=== PATIENT | male | born 1945 | race Caucasian/White ===

== ENCOUNTER 2016-11-03 07:00 | Outpatient (CLI) | payer MEDICARE, OTHER ==
[2016-04-08 21:59] VITALS: BP 148/72
--- NOTE | 2016-11-03 13:42 | Diagnostic Imaging Report ---
[facility] [address] [facility] [address] Report Submission Date: Nov 03, 2016 12:03:35 PM INSULATION CUPOLA CHARGER Patient Study Name: ARRON MCCULLOUGH Date: Nov 03, 2016 8:30:44 AM INSULATION CUPOLA CHARGER Modality Type: CT\SR Gender: M Description: CT ABD & PELVIS W/ CON : 47 Institution: [facility] Physician: KENZIE NGUYỄN CT of the abdomen and pelvis with contrast Clinical history: Intermittent left lower quadrant abdominal pain for 3-4 months. Technique: CT of the abdomen and pelvis is performed with oral and intravenous administration of contrast. Sagittal and coronal reconstructions are performed by the technologist. Findings: There is a 4 mm noncalcified nodule right lower lobe consistent with noncalcified granuloma. Lung bases are otherwise clear. The liver is hypodense consistent with hepatic steatosis. There is no focal abnormality in the liver or spleen. The gallbladder is normally distended. There is no pancreatic or adrenal abnormality. The kidneys demonstrate symmetric enhancement. Vascular calcification is present in the abdominal aorta without evidence of aneurysm. There is no retroperitoneal mass or significant adenopathy. Bladder is unremarkable. There is no free fluid in the pelvis or abdomen. Spondylitic changes are present in the thoracolumbar spine. There is a small left inguinal hernia containing only fat. The appendix is visualized and is within normal limits. Impression: 1. Negative appendix. 2. Hepatic steatosis. 3. Left inguinal hernia. 4. Vascular calcification. Electronically signed on Nov 03, 2016 12:03:35 PM INSULATION CUPOLA CHARGER by: José Miguel WHITLOCK
== END 2016-11-03 07:02 ==
LOC: RAD 07:00
PROVIDERS: ATTEND Family Medicine
DX: R10.32 Left lower quadrant pain (principal)
CPT/HCPCS: 74177; Q9966; A9698

== ENCOUNTER 2016-11-12 12:55 | Outpatient (CLI) | payer MEDICARE, OTHER ==
[2016-04-08 21:59] VITALS: BP 148/72
== END 2016-11-12 12:56 ==
LOC: OUT 12:55
PROVIDERS: ATTEND Colon & Rectal Surgery
DX: K40.90 Unilateral inguinal hernia, without obstruction or gangrene, not specified as recurrent (principal); I10 Essential (primary) hypertension; E78.5 Hyperlipidemia, unspecified
CPT/HCPCS: 99213; G0463

== ENCOUNTER 2017-01-25 21:11 | Emergency (ER) | payer MEDICARE, OTHER ==
[2017-01-25] MEDS: KETOROLAC TROMETHAMINE 60 MG/2 ML VIAL IM ONE (21:55)
--- NOTE | 2017-01-25 22:08 | ED Physician Documentation ---
Lower Extremity Injury - HISTORIAN Historian: patient - HPI Stated Complaint: left foot pain Chief Complaint: Lower Extremity Injury Onset: other (yesterday) Where: home Severity: moderate Context: direct blow (kicked a cow) Associated Symptoms:: unable to bear weight Modifying Factors:: pain on movement - ROS CONST: no problems CVS/RESP: none GI/: denies: problems urinating, nausea, vomiting, other MS/SKIN/LYMPH: none NEURO: denies: headache, head injury, anxiety, depression - PAST HX Past History: other (gout, ) Allergies/Adverse Reactions: Allergies Allergy/AdvReac Type Severity Reaction Status Date / Time No Known Allergies Allergy Verified 04/08/16 20:52 - SOCIAL HX Smoking History: non-smoker - FAMILY HX Family History: none - VITAL SIGNS Vital Signs: Vital Signs Temp Pulse Resp BP Pulse Ox 98.9 F 87 18 140/73 96 01/25/17 21:15 01/25/17 21:15 01/25/17 21:15 01/25/17 21:15 01/25/17 21:15 - REVIEWED ASSESSMENTS Nursing Assessment Reviewed: Yes Vitals Reviewed: Yes Progress - Progress Progress: Right foot with significant edema and erythema. Patient rates pain 10/10. XRay reviewed, likely chip fracture in distal 1st metatarsal. Will place patient in walking boot and have him follow up with Dr Roger for re-check of images in 48 hours. ED Results Lab/Radiology - Lab Results Lab Results: Lab Results 01/25/17 22:18 Uric Acid 3.8 mg/dL mg/dL (2.0-7.8) - Radiology Radiology Impressions: HISTORY: 71-year-old male with left foot pain after injury, pain is primarily involving the great toe. COMPARISON: None available. TECHNIQUE: 3 views of the left foot were performed. FINDINGS: No acute fracture or dislocation are identified about the left foot. There is an old healed fracture of the left fifth toe proximal phalanx. 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 There are severe degenerative changes of the first MTP joint. There is a 12 mm plantar calcaneal bone spur. There is an os trigonum. IMPRESSION: 1. No acute fracture of the left foot. 2. Old healed fracture of the left fifth toe proximal phalanx. 3. 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 Electronically signed on Jan 25, 2017 9:47:24 PM CDT by: Sanjay Hurtado - Orders Orders: ED Orders Category Date Time Status Walking Boot 1T Care 01/25/17 22:15 Active FOOT 3 VIEWS OR MORE [RAD] Stat Exams 01/25/17 Taken URIC ACID Stat Lab 01/25/17 22:18 Completed Ketorolac Tromethamine [Toradol] Med 01/25/17 21:43 Discontinued 60 mg IM NOW ONE Lower Extremities Injury Phy - Physical Exam General Appearance: moderate distress Hips: bilateral hip: non-tender, normal inspection, normal range of motion, no evidence of injury Legs: bilateral: non-tender, normal inspection, normal range of motion, no evidence of injury Knees: bilateral: non-tender, normal inspection, normal range of motion, no evidence of injury Ankle: bilateral: non-tender, normal inspection, normal range of motion, no evidence of injury Foot: right foot: non-tender, normal inspection, normal range of motion, no evidence of injury, left foot: bone tenderness, deformity, ecchymosis, limited range of motion, pain (worse over 1st metatarsal MTP joint), soft tissue tenderness, swelling Gait: limited by pain Neuro/Vascular/Tendon: no vascular compromise, motor nml, sensation nml, ROM nml Resp/CVS: chest non-tender, breath sounds nml, heart sounds nml, no resp. distress, lungs clear, reg. rate & rhythm Discharge Clincal Impression: Metatarsal bone fracture Qualifiers: Encounter type: initial encounter Metatarsal bone: first Fracture type: closed Fracture alignment: nondisplaced Laterality: left Qualified Code(s): S92.315A - Nondisplaced fracture of first metatarsal bone, left foot, initial encounter for closed fracture Referrals: Eriberto Roger MD [Primary Care Provider] - 2 Days Additional Instructions: Rest ice elevation Wear your Walking boot until you are seen by Dr Roger. Make a f/u appointment for re-evaluation in 2 days. Condition: Stable Disposition: 01 HOME, SELF-CARE Decision to Admit: NO Decision Time: 22:14
[2017-01-25] MEDS: HYDROcodone /APAP 5/325 1 EACH TABLET PO ONE (23:04)
[2017-01-25 23:06] VITALS: BP 138/72
--- NOTE | 2017-01-26 05:50 | Diagnostic Imaging Report ---
Report Submission Date: Jan 25, 2017 9:47:24 PM CDT Patient ~ Study Name: ARRON MCCULLOUGH ~ Date: Jan 25, 2017 9:29:22 PM CDT ~ Modality Type: CR Gender: M ~ Description: LOWER EXTREMITY : 47 ~ Institution: [facility] Physician: SHIELA GONZALEZ) Lorena SEN ~ ~ ~ ~ HISTORY: ~71-year-old male with left foot pain after injury, pain is primarily involving the great toe. COMPARISON: None available. TECHNIQUE: 3 views of the left foot were performed. FINDINGS: No acute fracture or dislocation are identified about the left foot. There is an old healed fracture of the left fifth toe proximal phalanx. 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 ~ There are severe degenerative changes of the first MTP joint. ~There is a 12 mm plantar calcaneal bone spur. ~There is an os trigonum. IMPRESSION: 1. ~No acute fracture of the left foot. 2. ~Old healed fracture of the left fifth toe proximal phalanx. 3. 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 ~ Electronically signed on Jan 25, 2017 9:47:24 PM CDT by: Sanjay WHITLOCK
== END 2017-01-25 23:04 | disposition home or self-care (01) ==
LOC: ED 21:11
DX: S92.315A Nondisplaced fracture of first metatarsal bone, left foot, initial encounter for closed fracture (principal); X58.XXXA Exposure to other specified factors, initial encounter; Y93.9 Activity, unspecified; Y99.9 Unspecified external cause status
CPT/HCPCS: 73630; 84550; A9270; J1885; 96372; 99283; L4360

== ENCOUNTER 2017-11-26 18:47 | Emergency (ER) | payer MEDICARE, OTHER ==
[2017-11-26] MEDS: 0.9 % SODIUM CHLORIDE 1,000 ML IV ONE (19:18)
[2017-11-26] MEDS: KETOROLAC TROMETHAMINE 30 MG/1ML VIAL IVP ONE (19:18)
--- NOTE | 2017-11-26 19:52 | ED Physician Documentation ---
Upper Respiratory Symptoms - HISTORIAN Historian: patient - HPI Stated Complaint: flu like symptoms Chief Complaint: Cough/ Upper Respiratory Onset: days ago (2) Associated Symptoms: fever, chills, runny nose, productive cough Further Comments: yes (72 year old male patient presents with flu like symptoms since Wednesday morning. Patient reports fever & chills, cough, decreased po intake.) - ROS CONST/EYES: eye redness. denies: weakness, eye itching CVS/RESP: none LYMPH: denies: leg swelling, rash, swollen glands, ankle swelling, other GI/: none NEURO/PSYCH: denies: fainting, dizziness, confusion, anxiety, depression, other MS/SKIN: denies: joint pain, muscle aches, rash, other - PAST HX Lung Disease: none PE Risk Factors: hypertension, other (HLD) Allergies/Adverse Reactions: Allergies Allergy/AdvReac Type Severity Reaction Status Date / Time No Known Allergies Allergy Verified 11/26/17 18:57 - SOCIAL HX Smoking History: cigarettes Alcohol Use: heavy (daily) - FAMILY HX Family History: denies: none - VITAL SIGNS Vital Signs: Vital Signs Temp Pulse Resp BP Pulse Ox 100.5 F H 87 16 167/80 95 11/26/17 18:50 11/26/17 18:50 11/26/17 18:50 11/26/17 18:50 11/26/17 18:50 - REVIEWED ASSESSMENTS Nursing Assessment Reviewed: Yes Vitals Reviewed: Yes Progress - Progress Progress: Patient reports drinking 1 glass of water and 1 glass of juice today, took tylenol at 0500. Will medicate with toradol and give 1L of NS due to co-morbidities of ETOH abuse. Rapid influenza negative. ED Results Lab/Radiology - Orders Orders: ED Orders Category Date Time Status Place IV Lock 1T Care 11/26/17 19:02 Active INFLUENZA A&B Stat Lab 11/26/17 19:08 Ordered 0.9 % Sodium Chloride [Normal Saline] 1,000 ml Med 11/26/17 19:02 Discontinued IV NOW Ketorolac Tromethamine [Toradol] Med 11/26/17 19:02 Discontinued 30 mg IVP NOW ONE Upper Respiratory Symptoms - EXAM General Appearance: other (ill appearing patient) EENT: eyes nml inspection, nml ENT inspection, lids & conjunct. nml, PERRL, ear nml, nose nml, pharynx nml, airway nml Respiratory: no resp. distress, breath sounds nml, no pain on inspiration, speaks full sentences, no pleuritic chest pain Abdomen: non-tender, no organomegaly, nml bowel sounds, no distention CVS: reg rate & rhythm, heart sounds normal, equal pulses, no murmur, no gallop , PMI nml, no JVD, no friction rub, 24 Skin: color nml, no rash, warm,dry Extremities: non-tender, normal range of motion, no evidence of injury, no edema , J, [employer] Neuro/Psych: oriented x3, neuro intact, mood/affect nml, CN's nml as tested Discharge Clincal Impression: Viral syndrome Referrals: Eriberto Roger MD [Primary Care Provider] - 2 Days Additional Instructions: A virus cannot be treated with antibiotics. Rest Have plenty of sleep and rest. Stay away from others while you have a cold or flu. Take simple painkillers Such as Tylenol or ibuprofen, to help relieve headaches, muscles aches and pains and fever. Keep hydrated (drink plenty of fluids) This will help keep your throat moist and replace fluid lost due to a fever and sweating. Plenty of water is best. Avoid caffeine and alcohol as they will make you more dehydrated. Eat soft food If you have a sore throat soft foods are easier to swallow. Foods such as chicken soup may help a sore throat and reduce mucous. tune up mechanic an over the counter decongestant such as pseudoped, dayquil and Nyquil at your pharmacy. You may want to try Vicks rub on your chest and/or feet. ( Caution: Dayquil and Nyquil contain 325mg of Tylenol/acetaminophen per tablespoon) Cough drops as needed for cough and sore throat. Increase your fluid intake juices, hot tea, non-caffeinated beverages Vitamin C may be helpful in decreasing the length of your cold. Use a humidifier in the room where you sleep. You can also sit in a steam filled bathroom 1-2 times a day. Tylenol every 4 hours 650mg -1000mg (do not exceed 4000mg in 24 hours) as needed for fever, pain and body aches. Alternate with Ibuprofen Ibuprofen 600-800mg every 6 hours as needed for fever, pain and body aches. See your primary care doctor if your symptoms become worse or do not improve in the next 3-4 days. Condition: Stable Disposition: 01 HOME, SELF-CARE Decision to Admit: NO Decision Time: 19:53
[2017-11-26 20:16] VITALS: BP 143/71
== END 2017-11-26 20:05 | disposition home or self-care (01) ==
LOC: ED 18:47
DX: B34.9 Viral infection, unspecified (principal); F10.10 Alcohol abuse, uncomplicated; F17.210 Nicotine dependence, cigarettes, uncomplicated
CPT/HCPCS: 87400; 96365; 96375; 99283; J1885; J7030; S1016

== ENCOUNTER 2017-12-31 11:28 | Outpatient (CLI) | payer MEDICARE, OTHER ==
[2017-12-31 11:55] LABS: BASOPHILS % 0.6 (0.0-1.5); MEAN CORPUSCULAR VOLUME 94.8 fl (80.0-100.0); MONOCYTES % 4.3 % (0.0-11.0); NEUTROPHILS # 4.3 # k/uL (1.4-7.7)
[2017-12-31 13:08] LABS: eGFR (African) > 60; eGFR (Non-African) > 60
== END 2017-12-31 11:30 ==
LOC: LAB 11:28
PROVIDERS: ATTEND Family Medicine
DX: I10 Essential (primary) hypertension (principal); E78.5 Hyperlipidemia, unspecified
CPT/HCPCS: 36415; 80053; 80061; 85025

== ENCOUNTER 2018-11-23 10:04 | Outpatient (CLI) | payer MEDICARE, OTHER ==
[2018-11-23 11:13] LABS: eGFR (Non-African) > 60
== END 2018-11-23 10:10 ==
LOC: LAB 10:04
PROVIDERS: ATTEND Family Medicine
DX: M10.9 Gout, unspecified (principal); I10 Essential (primary) hypertension; R73.9 Hyperglycemia, unspecified; Z12.5 Encounter for screening for malignant neoplasm of prostate
CPT/HCPCS: 36415; 80053; 80061; 83036; 84153; 84550

== ENCOUNTER 2019-06-05 09:05 | Emergency (ER) | payer MEDICARE, OTHER ==
--- NOTE | 2019-06-05 09:18 | ED Physician Documentation ---
Ear Complaints - HISTORIAN Historian: patient - HPI Stated Complaint: right ear feels full of wax Chief Complaint: Ear Complaints Timing: still present Location of Pain: L ear Severity: moderate Associated Symptoms: aching, hearing loss. denies: fever, chills, sharp pain, dull pain Further Comments: yes (He states he has had issues with ear wax in the past and he feels his left ear is full of wax. He denies any pain or illness. He has no fever.) - ROS CONST: no problems - PAST HX Past History: none Allergies/Adverse Reactions: Allergies Allergy/AdvReac Type Severity Reaction Status Date / Time No Known Allergies Allergy Verified 11/26/17 18:57 - SOCIAL HX Smoking History: non-smoker Alcohol Use: none Drug Use: none - FAMILY HX Family History: No - VITAL SIGNS Vital Signs: Vital Signs Temp Pulse Resp BP Pulse Ox 143/71 11/26/17 20:05 - REVIEWED ASSESSMENTS Nursing Assessment Reviewed: Yes Vitals Reviewed: Yes Ear Complaint Physical Exam - EXAM General Appearance: no acute distress, alert Ear: auricle nml, cnc specialist.canal nml, right, left, cerumen, bulging of TM (right ear with redness and bulging TM ). No: pain w movement of auricl Mouth/Throat: lips nml, pharynx nml Nose: nml inspection Head/Neck: atraumatic Eye: eyes nml inspection Resp/CVS: chest non-tender, breath sounds nml, heart sounds nml, no resp. distress, lungs clear, reg. rate & rhythm Abdomen: non-tender Skin: nml color Neuro/Psych: oriented x3 Discharge Clincal Impression: Otitis media, right Qualifiers: Otitis media type: other nonsuppurative Chronicity: acute Recurrence: non- recurrent Qualified Code(s): H65.191 - Other acute nonsuppurative otitis media, right ear Cerumen impaction Qualifiers: Laterality: bilateral Qualified Code(s): H61.23 - Impacted cerumen, bilateral Referrals: Eriberto Roger MD [Primary Care Provider] - 2 Days Comments: 1 . Debrox drops 5-10 drops in each ear twice daily x 4days 2. Amoxicillin 875 mg take 1 by mouth twice daily x 10 days 3. Increase fluids 4. Follow up with PCP 2-4 days if any continued concerns 5. Return to ER for any increased concerns Condition: Stable Disposition: 01 HOME, SELF-CARE Decision to Admit: NO Date of Decison to Admit: 06/05/19 Decision Time: 09:35
[2019-06-05 09:42] VITALS: BP 155/82
== END 2019-06-05 09:41 | disposition home or self-care (01) ==
LOC: ED 09:05
DX: H65.191 Other acute nonsuppurative otitis media, right ear (principal); H61.23 Impacted cerumen, bilateral
CPT/HCPCS: 99281

== ENCOUNTER 2019-06-09 07:25 | Emergency (ER) | payer MEDICARE, OTHER ==
[2019-06-09 07:40] VITALS: BP 153/85
[2019-06-09] MEDS ORDERED: CARBAMIDE PEROXIDE 6.5% OTIC SUSP 15 ML BOTTLE ONE (07:42)
--- NOTE | 2019-06-09 08:33 | ED Physician Documentation ---
General Adult - HISTORIAN Historian: patient - HPI Stated Complaint: ear fullness Chief Complaint: General Adult Onset: days ago Timing: still present Severity: moderate Further Comments: yes (Pt is a 74 yo male with recent ear infection who has c/o ear fullness b/l and decreased hearing.) - ROS CONST: no problems EYES/ENT: other (decreased hearing, ear fullness b/l) GI/: none MS/SKIN/LYMPH: none - PAST HX Past History: other (HLD) Allergies/Adverse Reactions: Allergies Allergy/AdvReac Type Severity Reaction Status Date / Time No Known Allergies Allergy Verified 06/09/19 07:32 - SOCIAL HX Smoking History: non-smoker - FAMILY HX Family History: No - VITAL SIGNS Vital Signs: Vital Signs Temp Pulse Resp BP Pulse Ox 98.1 F 80 19 153/85 94 06/09/19 07:33 06/09/19 07:33 06/09/19 07:33 06/09/19 07:33 06/09/19 07:33 - REVIEWED ASSESSMENTS Nursing Assessment Reviewed: Yes Vitals Reviewed: Yes Progress - Progress Progress: Cerumen impaction resolved after tx with Debrox and irrigation b/l Sx resolved ED Results Lab/Radiology - Orders Orders: ED Orders Category Date Time Status Carbamide Peroxide 6.5% Otic [Debrox] Med 06/09/19 07:42 Discontinued 225 drop .ROUTE .STK-MED ONE General Adult Physical Exam - PHYSICAL EXAM GENERAL APPEARANCE: no distress EENT: pharynx normal, other (b/l cerumen inpaction) NECK: normal inspection, supple RESPIRATORY: no resp distress, chest non-tender, breath sounds normal CVS: reg rate & rhythm, heart sounds normal BACK: normal inspection SKIN: warm/dry, normal color EXTREMITIES: non-tender, normal range of motion, no evidence of injury NEURO: oriented X3, motor nml, sensation nml Discharge Clincal Impression: Cerumen impaction Qualifiers: Laterality: bilateral Qualified Code(s): H61.23 - Impacted cerumen, bilateral Referrals: Eriberto Roger MD [Primary Care Provider] - Condition: Good Disposition: 01 HOME, SELF-CARE Decision to Admit: NO Decision Time: 08:33
[2019-06-09] MEDS ORDERED: CARBAMIDE PEROXIDE 6.5% OTIC SUSP 15 ML BOTTLE AU ONE (08:48)
== END 2019-06-09 08:51 | disposition home or self-care (01) ==
LOC: ED 07:25
DX: H61.23 Impacted cerumen, bilateral (principal)
CPT/HCPCS: 99282

== ENCOUNTER 2019-09-06 10:35 | Outpatient (CLI) | payer MEDICARE, OTHER ==
--- NOTE | 2019-09-06 11:13 | Diagnostic Imaging Report ---
PATIENT MR#: [id number] PATIENT PATIENT NAME: ARRON MCCULLOUGH DATE OF : 1945 REFERRING PHYSICIAN: Eriberto Roger EXAM DATE: 09/06/2019 ACCESSION NUMBER: [id number] EXAM DESCRIPTION: KNEES BILAT STANDING AP Exam: Weight-bearing AP knees. History: Pain. No previous studies are available for comparison. Medial compartment narrowing in the right knee is noted. Chondrocalcinosis in the medial compartment of both knees are noted. No acute fracture is identified. Impression: Arthritic changes more marked on the right than on the left. Read by: Dr. Naeem Tom Transcribed by: Transcribed Date: Electronically signed by: Dr. Naeem Tom Date signed: 09/06/2019 11:12:26 AM
--- NOTE | 2019-09-06 11:14 | Diagnostic Imaging Report ---
PATIENT MR#: [id number] PATIENT PATIENT NAME: ARRON MCCULLOUGH DATE OF : 1945 REFERRING PHYSICIAN: Eriberto Roger EXAM DATE: 09/06/2019 ACCESSION NUMBER: [id number] EXAM DESCRIPTION: KNEE 1 OR 2 VIEWS Exam: Right knee. History: Pain. AP, lateral and oblique view of the right knee are submitted. Medial compartment narrowing is noted. Spurring at the femoropatellar articulation is also noted. N o acute fracture is seen. No other soft tissue abnormalities are seen. Impression: Degenerative changes. Read by: Dr. Naeem Tom Transcribed by: Transcribed Date: Electronically signed by: Dr. Naeem Tom Date signed: 09/06/2019 11:13:25 AM
== END 2019-09-06 10:45 ==
LOC: RAD 10:35
PROVIDERS: ATTEND Family Medicine
DX: M25.561 Pain in right knee (principal)
CPT/HCPCS: 73560; 73565